=== PATIENT | male | born 1985 | race Caucasian/White ===

== ENCOUNTER 2016-07-24 17:07 | Emergency (ER) | payer MEDICAID, OTHER ==
[~2016-07-24] VITALS: Ht 182.9 cm; Wt 159.1 kg
[2016-07-24 18:19] VITALS: BP 125/78
== END 2016-07-24 18:53 | disposition home or self-care (01) ==
LOC: EMS 17:07
DX: M54.6 Pain in thoracic spine (principal); Z87.891 Personal history of nicotine dependence
CPT/HCPCS: 99281; 99283

== ENCOUNTER 2017-08-11 22:33 | Emergency (ER) | payer OTHER ==
[~2017-08-11] VITALS: Ht 182.9 cm; Wt 151.4 kg
[2017-08-11 23:19] VITALS: BP 154/105
== END 2017-08-12 01:45 | disposition left against medical advice (07) ==
LOC: EMS 22:34
DX: M54.5 Low back pain (principal); Z53.21 Procedure and treatment not carried out due to patient leaving prior to being seen by health care provider

== ENCOUNTER 2017-08-13 00:31 | Emergency (ER) | payer OTHER ==
[~2017-08-13] VITALS: Ht 182.9 cm; Wt 151.4 kg
[2017-08-13 01:45] VITALS: BP 142/92
[2017-08-13] MEDS ORDERED: IBUPROFEN 800 MG TABLET PO ONE (01:45)
== END 2017-08-13 01:50 | disposition home or self-care (01) ==
LOC: EMS 00:31
DX: M54.5 Low back pain (principal); F17.210 Nicotine dependence, cigarettes, uncomplicated; X50.9XXA Other and unspecified overexertion or strenuous movements or postures, initial encounter; Y93.89 Activity, other specified; Y92.69 Other specified industrial and construction area as the place of occurrence of the external cause; Y99.0 Civilian activity done for income or pay
CPT/HCPCS: 99283

== ENCOUNTER 2017-08-15 01:56 | Emergency (ER) | payer OTHER ==
[~2017-08-15] VITALS: Ht 182.9 cm; Wt 151.4 kg
[2017-08-15 04:05] VITALS: BP 144/80
== END 2017-08-15 04:29 | disposition home or self-care (01) ==
LOC: EMS 01:56
DX: M54.5 Low back pain (principal); F17.210 Nicotine dependence, cigarettes, uncomplicated
CPT/HCPCS: 99283

== ENCOUNTER 2021-05-01 06:57 | Emergency (ER) | payer OTHER ==
[~2021-05-01] VITALS: Ht 182.9 cm; Wt 181.8 kg
[2021-05-01 07:42] LABS: COVID AG,FIA SOURCE NASOPHARYNGEAL
[2021-05-01] MEDS ORDERED: IBUPROFEN 400 MG TABLET PO ONE (07:45)
[2021-05-01] MEDS ORDERED: ACETAMINOPHEN 325 MG TABLET PO ONE (07:45)
[2021-05-01] MEDS ORDERED: PENICILLIN G BENZATHINE LA 1,200,000 UNITS/2 ML SYRINGE IM ONE (08:00)
[2021-05-01 09:15] VITALS: BP 137/77
== END 2021-05-01 09:36 | disposition home or self-care (01) ==
LOC: EMS 06:59
DX: J02.9 Acute pharyngitis, unspecified (principal); R50.9 Fever, unspecified; F17.210 Nicotine dependence, cigarettes, uncomplicated; Z20.822 Contact with and (suspected) exposure to COVID-19
CPT/HCPCS: 87426; 87430; 96372; 99283; J0561

== ENCOUNTER 2022-06-12 16:28 | Emergency (ER) | payer OTHER ==
[~2022-06-12] VITALS: Ht 185.4 cm; Wt 150.0 kg
[2022-06-12 16:33] VITALS: BP 154/71
[2022-06-12] MEDS ORDERED: IBUPROFEN 600 MG TABLET PO ONE (16:45)
[2022-06-12] MEDS ORDERED: IBUP-1492 PO (17:27)
== END 2022-06-12 17:55 | disposition home or self-care (01) ==
LOC: EMS 16:29
DX: S80.02XA Contusion of left knee, initial encounter (principal); F17.210 Nicotine dependence, cigarettes, uncomplicated; Z98.890 Other specified postprocedural states; W06.XXXA Fall from bed, initial encounter; Y93.89 Activity, other specified; Y92.89 Other specified places as the place of occurrence of the external cause; Y99.8 Other external cause status
CPT/HCPCS: 99283

== ENCOUNTER 2023-08-29 23:45 | Emergency (ER) | payer OTHER ==
[~2023-08-29] VITALS: Ht 182.9 cm; Wt 181.8 kg
[~2023-08-29 23:45] MED LIST: IBUP-1492 PO
[2023-08-29 23:53] VITALS: TEMP 98.6
[2023-08-30 01:15] VITALS: BP 137/82; PULSE 107; RESP 24
[2023-08-30] MEDS: OxyCODONE HCL/ACETAMINOPHEN 5-325 MG TABLET PO ONE (01:29)
[2023-08-30] MEDS: IBUPROFEN 600 MG TABLET PO ONE (01:29)
[2023-08-30] MEDS ORDERED: PERCT PO (01:48)
[2023-08-30] MEDS ORDERED: IBUP-1492 PO (01:48)
== END 2023-08-30 02:02 | disposition home or self-care (01) ==
LOC: EMS 23:45
DX: S62.621A Displaced fracture of middle phalanx of left index finger, initial encounter for closed fracture (principal); F17.210 Nicotine dependence, cigarettes, uncomplicated; F12.90 Cannabis use, unspecified, uncomplicated; Y04.0XXA Assault by unarmed brawl or fight, initial encounter; Y93.89 Activity, other specified; Y92.89 Other specified places as the place of occurrence of the external cause; Y99.8 Other external cause status
CPT/HCPCS: 99283

== ENCOUNTER 2023-09-04 03:04 | Emergency (ER) | payer OTHER ==
[~2023-09-04] VITALS: Ht 182.9 cm; Wt 181.8 kg
[~2023-09-04 03:04] MED LIST changes: +PERCT PO
[2023-09-04 03:17] VITALS: TEMP 97.2
[2023-09-04 04:19] VITALS: BP 164/111; PULSE 96; RESP 18
[2023-09-04] MEDS ORDERED: IBUP-1492 PO (04:34)
[2023-09-04] MEDS ORDERED: PERCT PO (04:34)
== END 2023-09-04 05:11 | disposition home or self-care (01) ==
LOC: EMS 03:04
DX: S62.621A Displaced fracture of middle phalanx of left index finger, initial encounter for closed fracture (principal); F17.210 Nicotine dependence, cigarettes, uncomplicated; F12.90 Cannabis use, unspecified, uncomplicated; X58.XXXA Exposure to other specified factors, initial encounter; Y93.89 Activity, other specified; Y92.89 Other specified places as the place of occurrence of the external cause; Y99.8 Other external cause status
CPT/HCPCS: 99283; Z7502

== ENCOUNTER 2023-09-10 17:15 | Emergency (ER) | payer OTHER ==
[~2023-09-10] VITALS: Ht 185.4 cm; Wt 206.8 kg
[2023-09-10 17:17] VITALS: BP 148/82; PULSE 105; RESP 18; TEMP 97.3
[2023-09-10] MEDS ORDERED: IBUP-1554 PO (19:21)
[2023-09-10] MEDS ORDERED: PERCT PO (19:21)
== END 2023-09-10 19:43 | disposition home or self-care (01) ==
LOC: EMS 17:15
DX: S62.601A Fracture of unspecified phalanx of left index finger, initial encounter for closed fracture (principal); E66.01 Morbid (severe) obesity due to excess calories; F17.210 Nicotine dependence, cigarettes, uncomplicated; F12.90 Cannabis use, unspecified, uncomplicated; Z59.00 Homelessness unspecified; X58.XXXA Exposure to other specified factors, initial encounter; Y93.89 Activity, other specified; Y92.89 Other specified places as the place of occurrence of the external cause; Y99.8 Other external cause status
CPT/HCPCS: 99283; Z7502

== ENCOUNTER 2023-09-17 21:46 | Emergency (ER) | payer OTHER ==
[~2023-09-17] VITALS: Ht 185.4 cm; Wt 216.8 kg
[~2023-09-17 21:46] MED LIST changes: +IBUP-1554 PO
[2023-09-17 23:14] LABS: BASOPHILS % (AUTO) 0.5 % (0.0-2.0); HEMATOCRIT 42.5 % (41-53); HEMOGLOBIN 13.6 g/dL (13.5-17.5); LYMPHOCYTES # (AUTO) 1.9 K/uL (1.0-4.8); LYMPHOCYTES % (AUTO) 15.6 % (22.0-44.0); MEAN CORPUSCULAR HEMOGLOBIN 28.5 pg (26.0-34.0); MEAN CORPUSCULAR VOLUME 89 fL (80-100); MONOCYTES # (AUTO) 1.2 K/uL (0.1-1.0); NEUTROPHILS # (AUTO) 8.6 K/uL (1.8-7.7); NEUTROPHILS % (AUTO) 72.9 % (40.0-70.0); PLATELET COUNT (AUTO) 249 K/uL (150-450); RED BLOOD CELL COUNT(AUTO) 4.77 MIL/uL (4.50-5.90); RED CELL DISTRIBUTION WIDTH 14.4 % (11.5-14.5); WHITE BLOOD COUNT (AUTO) 11.8 K/uL (4.5-11.0)
[2023-09-17 23:23] LABS: ANION GAP 8 mmol/L (8-16); CALCIUM, TOTAL 8.5 mg/dL (8.8-10.5); CARBON DIOXIDE 28 mmol/L (22-29); CHLORIDE 100 mmol/L (98-107); CREATININE 0.93 mg/dL (0.60-1.30); GLOMERULAR FILTR. RATE CALC > 60 mL/min (>60); GLUCOSE,RANDOM 183 mg/dL (70-110); POTASSIUM 3.9 mmol/L (3.5-5.1); SODIUM SERUM 136 mmol/L (136-145); UREA NITROGEN, BLOOD 21 mg/dL (7-18)
[2023-09-17 23:30] LABS: ALCOHOL, BLOOD (SERUM) < 3 mg/dL (0-10)
[2023-09-18 00:55] LABS: ALCOHOL, URINE DRUG SCREEN NEGATIVE (NEGATIVE); AMPHET/METH SCREEN,URINE NEGATIVE (NEGATIVE); BARBITURATE SCREEN, URINE NEGATIVE (NEGATIVE); BENZODIAZEPINES SCREEN,URINE NEGATIVE (NEGATIVE); CANNABINOID SCREEN,URINE NEGATIVE (NEGATIVE); COCAINE SCREEN,URINE NEGATIVE (NEGATIVE); METHADONE SCREEN, URINE NEGATIVE (NEGATIVE); OPIATE SCREEN,URINE NEGATIVE (NEGATIVE); PHENCYCLIDINE SCREEN,URINE NEGATIVE (NEGATIVE)
[2023-09-18] MEDS ORDERED: ACETAMINOPHEN 500 MG TABLET PO ONE (01:15)
[2023-09-18 02:04] VITALS: BP 137/76; PULSE 89; RESP 22; TEMP 97.3
== END 2023-09-18 02:48 | disposition home or self-care (01) ==
LOC: EMS 21:46
DX: M79.602 Pain in left arm (principal); M79.601 Pain in right arm; F17.210 Nicotine dependence, cigarettes, uncomplicated; F12.90 Cannabis use, unspecified, uncomplicated; Z59.00 Homelessness unspecified
CPT/HCPCS: 99283; 80048; 85025; 36415; 80307; G0480

== ENCOUNTER 2023-10-06 00:42 | Emergency (ER) | payer OTHER ==
[~2023-10-06] VITALS: Ht 185.4 cm; Wt 159.1 kg
[2023-10-06 01:01] VITALS: TEMP 97.5
[2023-10-06 02:33] VITALS: BP 168/77; PULSE 102; RESP 16; O2SAT 92
[2023-10-06] MEDS: IBUPROFEN 600 MG TABLET PO ONE (02:45)
[2023-10-06] MEDS: ACETAMINOPHEN 325 MG TABLET PO ONE (03:05)
== END 2023-10-06 03:36 | disposition home or self-care (01) ==
LOC: EMS 00:42
DX: M79.645 Pain in left finger(s) (principal); F17.210 Nicotine dependence, cigarettes, uncomplicated; F12.90 Cannabis use, unspecified, uncomplicated
CPT/HCPCS: 99283